=== PATIENT | female | born 1990 | race Caucasian/White ===

== ENCOUNTER 2022-03-23 14:55 | Outpatient (CLI) | payer OTHER, SELFPAY ==
--- NOTE | ~2022-03-23 | US_ITS ---
EXAMINATION: US OB <=14 wk fetus w TV DATE: 03/23/2022 15:41 INDICATION: Confirm gestational dates and viability TECHNIQUE: Real-time transabdominal and transvaginal obstetric ultrasound. FINDINGS: No prior studies for comparison. The uterus measures 9 x 7.1 x 6.7 cm. There is an intrauterine gestational sac, with pole ident ified. The crown rump length measures 2.58 cm, which correlates with a estimated gestational age of 9 weeks 3 days. heart tones are identified measuring 173 BPM. The ovaries are within normal l imits. IMPRESSION: 1. SL IUP with an EGA of 9 weeks, 3 days (EDC by current ultrasound of 10/23/2022). Reviewed, dictated and finalized at location A. [employer] ASSOCIATE IMPRESSION: 1. SL IUP with an EGA of 9 weeks, 3 days (EDC by current ultrasound of 10/24/19 23).
== END 2022-03-23 14:56 | disposition home or self-care (01) ==
LOC: CHSIMG 14:58
PROVIDERS: PCP Family Medicine; Visit Provider Family Medicine
DX: Z3A.11 11 weeks gestation of pregnancy (principal)
CPT/HCPCS: 76801; 76817

== ENCOUNTER 2022-06-30 13:08 | Outpatient (CLI) | payer OTHER, SELFPAY ==
--- NOTE | 2022-06-30 14:20 | ECG_ITS ---
Rate 82 MA 170 QRSd 87 QT 360 QTc 421 --[place]-- P 52 QRS 67 T 50 SINUS RHYTHM BASELINE ARTIFACT- AVR, AVL, AVF, V1 NORMAL ECG NO PREVIOUS ECG AVAILABLE FOR COMPARISON Electronically Signed On 06-30-2022 14:31:07 CHILD NURSE by Dwaine SHINE
== END 2022-06-30 13:09 | disposition home or self-care (01) ==
PROVIDERS: PCP Family Medicine
DX: O10.919 Unspecified pre-existing hypertension complicating pregnancy, unspecified trimester (principal); I69.30 Unspecified sequelae of cerebral infarction; Z86.79 Personal history of other diseases of the circulatory system
CPT/HCPCS: 93005

== ENCOUNTER 2022-07-03 13:15 | Outpatient (CLI) | payer OTHER, SELFPAY ==
--- NOTE | 2022-07-03 01:00 | ECHO_ITS ---
Patient Info Name: Gisela Solomon Age: 32 years : 1990 Gender: Female Ht: 66 in Wt: 184 lbs BSA: 2.00 m2 HR: 90 bpm BP: 130 / 87 mmHg Heart Rhythm: Sinus Rhythm Technical Quality: Fair Exam Date: 07/03/2022 1:17 PM Exam Location: [facility] Patient Status: Outpatient Admit Date: 07/03/2022 Staff Ordering Physician: MENDOZA ELDER [employer] Agent: Yun Santiago RDCS Attending Provider: MENDOZA ELDER Referring Physician: Kerry ZIMMERMAN; Exam Type: CA echo doppler color flow Study Info Indications - hypertension w Complete two-dimensional, color flow and Doppler transthoracic echocardiogram is performed. Summary 1. Complete two-dimensional, color flow and Doppler transthoracic echocardiogram is performed. 2. Left ventricular chamber dimension is normal. 3. Left ventricular systolic function is normal, estimated at 65-70%. 4. The left ventricular diastolic function is grade II diastolic dysfunction. 5. E/e' 11 is mildly elevated. 6. There is trace tricuspid valve regurgitation. 7. There is trace pulmonic regurgitation. Left Ventricle E/e' 11 is mildly elevated. Left ventricular chamber dimension is normal. Left ventricular systolic function is normal, estimated at 65-70%. The left ventricular diastolic function is grade II diastolic dysfunction. Right Ventricle Right ventricular systolic function is normal and with normal TAPSE 1.9 cm. Right ventricular chamber dimension is normal. Left Atria Left atrial chamber dimension is normal. Right Atria Right atrial chamber dimension is normal. Aortic Valve The aortic valve is trileaflet. There is no aortic valve stenosis. There is no aortic valve regurgitation. Pulmonic Valve There is trace pulmonic regurgitation. Mitral Valve There is no mitral valve stenosis. There is no mitral valve regurgitation. Tricuspid Valve There is trace tricuspid valve regurgitation. RVSP it not calculated due to an inadequate TR jet. Pericardium/Pleural There is no pericardial effusion. Inferior Vena Cava Normal inferior vena cava with >50% collapse upon inspiration consistent with normal right atrial pressure, 5 mmHg. Aorta The aortic root size at the sinus of Valsalva is normal. Left Ventricular Outflow Tract Name Value Normal LVOT 2D LVOT Diameter 2.0 cm LVOT Doppler LVOT Peak Velocity 67 cm/s LVOT Peak Gradient 2 mmHg LVOT Mean Gradient 1 mmHg LVOT VTI 16 cm LVOT VTI/AV VTI Ratio 0.5 LVOT Stroke Volume 49 ml Pulmonic Valve Name Value Normal RVOT Doppler RVOT Peak Gradient 3 mmHg PV Doppler
== END 2022-07-03 13:16 | disposition home or self-care (01) ==
PROVIDERS: PCP Family Medicine
DX: I10 Essential (primary) hypertension (principal); Z86.79 Personal history of other diseases of the circulatory system; I69.30 Unspecified sequelae of cerebral infarction; O09.91 Supervision of high risk pregnancy, unspecified, first trimester
CPT/HCPCS: 93306

== ENCOUNTER 2022-07-14 07:14 | Outpatient (CLI) | payer OTHER, SELFPAY ==
[2022-07-14 07:45] LABS: Glucose Fasting 87 mg/dL (70-99)
[2022-07-14 08:59] LABS: Glucose 1 Hour 169 mg/dL (<180)
[2022-07-14 09:45] LABS: Glucose 2 Hour 128 mg/dL (<155)
[2022-07-14 10:48] LABS: Glucose 3 Hour 92 mg/dL (<140)
== END 2022-07-14 07:15 | disposition home or self-care (01) ==
LOC: CHSLAB 07:17
PROVIDERS: PCP Family Medicine
DX: O09.91 Supervision of high risk pregnancy, unspecified, first trimester (principal)
CPT/HCPCS: 36415; 82951; 82952